=== PATIENT | male | born 2000 | race Caucasian/White ===

== ENCOUNTER 2019-04-03 03:49 | Emergency (ER) | payer BC, SELFPAY ==
[2019-04-03] VITALS (12 sets, daily range): BP systolic 112–122; BP diastolic 72–83; PULSE 71–99; RESP 12–18; TEMP 36.9; O2SAT 98; BMI 19.6
--- NOTE | 2019-04-03 03:52 | EKG12_ITS ---
Test Reason : Blood Pressure : / mmHG Vent. Rate : 066 BPM Atrial Rate : 066 BPM P-R Int : 144 ms QRS Dur : 098 ms QT Int : 384 ms P-R-T Axes : 067 075 074 degrees QTc Int : 402 ms Normal sinus rhythm Normal ECG Confirmed by HOSSEIN FIELD, SKYLAR ([id number]), desk editor ALLISON GRAY ([id number]) on 04/05/2019 11:43:41 AM Referred By: JASPER Confirmed By:ZEUS CATALAN MD
--- NOTE | 2019-04-03 03:56 | ED.VIS.GEN ---
History of Present Illness Chief Complaint: Suicidal Narrative: Patient is a 18-year-old male who presents with suicidal ideation. He was sent from the [facility]. He does have a history of depression and takes Cymbalta. He was considering hanging himself or overdosing on medication tonight. He states he got cold feet in the end. He denies actually having taken any medications or attempting to actually hurt himself. No particular exacerbating factors. He had a recent URI-like illness with congestion and runny nose and cough although this is now resolving. Past Medical History - Allergies and Home Meds Allergies/Adverse Reactions: Allergies No Known Allergies Allergy (Verified 04/03/19 03:50) Primary Care Physician: NOT,DEFINED [NON-STAFF] - Past Medical History: - - Depression Review of Systems All systems negative except as indicated General: Denies: Fever ENT: Reports: Rhinorrhea, - - Congestion Cardiovascular: Denies: Chest pain Respiratory: Reports: Cough. Denies: Dyspnea Gastrointestinal: Denies: Abdominal pain, Nausea, Vomiting, Diarrhea Psych: Reports: Depression, Suicidal thoughts, Suicidal ideations Physical Exam Inital Vital Signs reviewed: Yes General: Well nourished, Well developed Head: Normocephalic, Atraumatic Eyes: Perrl, EOMI ENT: Moist mucous membranes Neck: Supple Cardiovascular: Regular rate, Regular rhythm Respiratory: No distress, CTA bilaterally Abdomen: Soft Skin: Normal color Neurological: Alert Psychological: Depressed, - - Blunt affect, endorses suicidal ideations Diagnostic/Tx/Re-eval Laboratory Tests 04/03/19 04/03/19 04/03/19 Range/Units 04:15 04:10 04:10 WBC (4.4-11.0) K/mm3 RBC (4.6-6.2) M/mm3 Hgb (13.0-16.5) g/dL Hct (40-54) % MCV (80-94) fL MCH (27.0-32.0) pg MCHC (32-36) g/dL RDW Std Deviation (35.1-43.9) fl RDW Coeff of Trey (11.6-14.6) % Plt Count (150-450) K/mm3 MPV (6.2-12.0) fl Immature Gran % (Auto) (0.0-0.9) % Neut % (Auto) (47-70) % Lymph % (Auto) (19-41) % Morrow % (Auto) (0-10) % Eos % (Auto) (0-5) % Baso % (Auto) (0-1) % Absolute Neuts (auto) (2.0-7.7) X10^3/uL Absolute Lymphs (auto) (0.83-4.51) X10^3/uL Nucleated RBC % (0-5) % Sodium 141 (136-145) mmol/L Potassium 3.7 (3.5-5.1) mmol/L Chloride 107 (98-107) mmol/L Carbon Dioxide 26.0 (21.0-32.0) mmol/L Anion Gap 8 (5-15) BUN 17 (7-18) mg/dL Creatinine 0.67 L (0.70-1.30) mg/dL Estim Creat Clear Calc 146.99 ml/min Est GFR (MDRD) Af Amer 197 (>60) mL/min Est GFR (MDRD) Non-Af 162 (>60) mL/min BUN/Creatinine Ratio 25.4 H (10-20) RATIO Glucose 82 (74-106) mg/dL Calcium 8.9 (8.5-10.1) mg/dL Urine Opiates Screen NEGATIVE (< 300 ng/mL) Urine Methadone Screen NEGATIVE (< 300 ng/mL) Ur Barbiturates Screen NEGATIVE (< 200 ng/mL) Ur Phencyclidine Scrn NEGATIVE (< 25 ng/mL) Ur Amphetamines Screen NEGATIVE (<1000 ng/mL) U Methamphetamin-MDMA NEGATIVE (< 500 ng/mL) U Benzodiazepines Scrn NEGATIVE (< 200 ng/mL) Urine Cocaine Screen NEGATIVE (< 300 ng/mL) U Cannabinoids Screen NEGATIVE (< 50 ng/mL) Ur Drug Screen Comment Ethyl Alcohol < 3.0 mg/dL 04/03/19 Range/Units 04:10 WBC 12.2 H (4.4-11.0) K/mm3 RBC 4.42 L (4.6-6.2) M/mm3 Hgb 13.4 (13.0-16.5) g/dL Hct 38.6 L (40-54) % MCV 87.3 (80-94) fL MCH 30.3 (27.0-32.0) pg MCHC 34.7 (32-36) g/dL RDW Std Deviation 38.5 (35.1-43.9) fl RDW Coeff of Trey 11.9 (11.6-14.6) % Plt Count 384 (150-450) K/mm3 MPV 9.3 (6.2-12.0) fl Immature Gran % (Auto) 0.400 (0.0-0.9) % Neut % (Auto) 57.9 (47-70) % Lymph % (Auto) 31.7 (19-41) % Morrow % (Auto) 8.0 (0-10) % Eos % (Auto) 1.3 (0-5) % Baso % (Auto) 0.7 (0-1) % Absolute Neuts (auto) 7.1 (2.0-7.7) X10^3/uL Absolute Lymphs (auto) 3.85 (0.83-4.51) X10^3/uL Nucleated RBC % 0 (0-5) % Sodium (136-145) mmol/L Potassium (3.5-5.1) mmol/L Chloride (98-107) mmol/L Carbon Dioxide (21.0-32.0) mmol/L Anion Gap (5-15) BUN (7-18) mg/dL Creatinine (0.70-1.30) mg/dL Estim Creat Clear Calc ml/min Est GFR (MDRD) Af Amer (>60) mL/min Est GFR (MDRD) Non-Af (>60) mL/min BUN/Creatinine Ratio (10-20) RATIO Glucose (74-106) mg/dL Calcium (8.5-10.1) mg/dL Urine Opiates Screen (< 300 ng/mL) Urine Methadone Screen (< 300 ng/mL) Ur Barbiturates Screen (< 200 ng/mL) Ur Phencyclidine Scrn (< 25 ng/mL) Ur Amphetamines Screen (<1000 ng/mL) U Methamphetamin-MDMA (< 500 ng/mL) U Benzodiazepines Scrn (< 200 ng/mL) Urine Cocaine Screen (< 300 ng/mL) U Cannabinoids Screen (< 50 ng/mL) Ur Drug Screen Comment Ethyl Alcohol mg/dL - Medical Decision Making EKG shows normal sinus rhythm at a rate of 66. Laboratory studies including serum alcohol and urine drug screen unremarkable. Patient is medically cleared. He will be evaluated by crisis and will likely need psychiatric hospitalization. ED Disposition - Plan for ED Patient: Disposition: Psychiatric Hospital or Unit Diagnosis: Suicidal ideation Referrals: NOT,DEFINED [NON-STAFF] -
[2019-04-03 04:24] LABS: Absolute Lymphocyte Count 3.85 X10^3/uL (0.83-4.51); Absolute Neutrophil Count 7.1 X10^3/uL (2.0-7.7); Basophil# 0.08 X10^3/uL; Basophil% 0.7 % (0-1); Eosinophil# 0.16 X10^3/uL; Eosinophils% 1.3 % (0-5); Hematocrit 38.6 % (40-54); Hemoglobin 13.4 g/dL (13.0-16.5); Lymphocyte # 3.85 X10^3/ul (4.0); Lymphocyte % 31.7 % (19-41); Mean Corp Hgb Conc 34.7 g/dL (32-36); Mean Corpuscular Hgb 30.3 pg (27.0-32.0); Mean Corpuscular Volume 87.3 fL (80-94); Mean Platelet Vol. 9.3 fl (6.2-12.0); Monocyte# 0.97 X10^3/uL; NRBC Flagged by Analyzer 0 % (0-5); Neutrophil # 7.05 X10^3/uL (2.7-7.7); Neutrophil % 57.9 % (47-70); Platelet Count 384 K/mm3 (150-450); RBC Distribution Width CV 11.9 % (11.6-14.6); RBC Distribution Width SD 38.5 fl (35.1-43.9); Red Blood Count 4.42 M/mm3 (4.6-6.2); White Blood Count 12.2 K/mm3 (4.4-11.0)
[2019-04-03 04:48] LABS: Alcohol, Blood (Medical)-Serum < 3.0 mg/dL; Anion Gap 8 (5-15); BUN 17 mg/dL (7-18); BUN/Creat Ratio 25.4 RATIO (10-20); Calcium,Total 8.9 mg/dL (8.5-10.1); Chloride 107 mmol/L (98-107); Creatinine, Serum 0.67 mg/dL (0.70-1.30); EST Glomerular Filtration Rate 162 mL/min (>60); Est Glom Filt Rate - Afr Amer 197 mL/min (>60); Estimated Creatinine Clearance 146.99 ml/min; Glucose 82 mg/dL (74-106); Potassium 3.7 mmol/L (3.5-5.1); Sodium Level 141 mmol/L (136-145)
[2019-04-03 04:50] LABS: Amphetamine Urine VISTA NEGATIVE (<1000 ng/mL); Barbiturate Urine VISTA NEGATIVE (< 200 ng/mL); Benzodiazepine Urine VISTA NEGATIVE (< 200 ng/mL); Cocaine Urine VISTA NEGATIVE (< 300 ng/mL); Ecstacy Urine VISTA NEGATIVE (< 500 ng/mL); Methadone Urine VISTA NEGATIVE (< 300 ng/mL); PCP Urine VISTA NEGATIVE (< 25 ng/mL); THC Urine VISTA NEGATIVE (< 50 ng/mL); Vista UDS pH Range 5
--- NOTE | 2019-04-03 10:15 | NURSING ---
[facility] FAXED INSURANCE CARD, CALLED [facility]. THEY WILL WORK ON PLACEMENT
[2019-04-03] MEDS: Loratadine 10 MG Tablet 5 MG PO (10:56)
[2019-04-03] MEDS: Multivitamins,Therapeutic Tablet 1 TABLET PO (10:56)
[2019-04-03] MEDS: Ferrous Sulfate 325 MG Tablet PO (10:56)
[2019-04-03] MEDS: DULoxetine Hcl 60 MG Capsule PO (10:56)
--- NOTE | 2019-04-03 14:41 | NURSING ---
ACCEPTED AT [facility] NURSE TO NURSE [phone]
--- NOTE | 2019-04-03 14:46 | NURSING ---
[facility] COUNSELOR CALLED. SHE TOOK ADMISSION INFO AND IS GOING TO CALL HIS PARENTS.
--- NOTE | 2019-04-03 14:46 | NURSING ---
[facility] WILL BE OVER WITH A PINK SLIP
--- NOTE | 2019-04-03 15:19 | NURSING ---
CALLING [facility] FOR TRANSPORT. SOMETIME TOMORROW
--- NOTE | 2019-04-03 16:17 | ED.RN ---
spoke with pt's mother Alayna (Med POA) after she spoke with pt. Received the pts Psychiatrist name and number from mother. this RN then called [facility] to update mother's info and inform them that she was Med POA and give Psychiatrist info.
== END 2019-04-03 16:01 ==
PROVIDERS: Emergency Provider Emergency Medicine
DX: R45.851 Suicidal ideations (principal); F32.9 Major depressive disorder, single episode, unspecified
CPT/HCPCS: 80048; 80307; 80320; 85025; 93005; 99285; G0480